=== PATIENT | female | born 1955 | race Caucasian/White ===

== ENCOUNTER 2022-07-27 11:16 | Outpatient (CLI) | payer MEDICARE, SELFPAY ==
[2022-07-27 21:56] LABS: Albumin* 5.2 g/dL (3.3-5.0)
[2022-07-27 21:58] LABS: Aspartate Amino Transferase* 50 U/L (12-35); Bilirubin Direct* 0.2 mg/dL (0.0-0.5); Bilirubin Total* 0.8 mg/dL (0.1-1.5); Total Protein* 8.3 g/dL (6.0-8.3)
[2022-07-27 21:59] LABS: Alanine Aminotransferase* 63 U/L (4-35); Alkaline Phosphatase* 176 U/L (40-150)
== END 2022-07-27 11:17 | disposition home or self-care (01) ==
LOC: LKVREF 11:16
PROVIDERS: PCP Family Medicine; Visit Provider Family Medicine
DX: R79.89 Other specified abnormal findings of blood chemistry (principal)
CPT/HCPCS: 80076

== ENCOUNTER 2022-09-13 11:02 | Outpatient (CLI) | payer MEDICARE, SELFPAY ==
[2022-09-13 22:15] LABS: Chloride* 105 mmol/L (96-114)
[2022-09-13 22:16] LABS: Potassium* 4.4 mmol/L (3.6-5.1); Sodium* 142 mmol/L (135-149)
[2022-09-13 22:18] LABS: Carbon Dioxide* 27 mmol/L (20-32); Creatinine* 0.8 mg/dL (0.5-1.5); Estimated Glomerular Filt Rate 80 ml/min
[2022-09-13 22:19] LABS: Blood Urea Nitrogen* 15 mg/dL (7-30); Calcium* 9.7 mg/dL (8.4-10.6); Glucose* 102 mg/dL (60-115)
== END 2022-09-13 11:03 | disposition home or self-care (01) ==
LOC: LKVREF 11:03
PROVIDERS: PCP Family Medicine; Visit Provider Family Medicine
DX: M54.9 Dorsalgia, unspecified (principal)
CPT/HCPCS: 80048; 87086

== ENCOUNTER 2023-04-12 10:29 | Outpatient (CLI) | payer MEDICARE, SELFPAY | END 2023-04-12 10:30 | disposition home or self-care (01) | PROVIDERS: PCP Family Medicine; Referring Provider Family Medicine; Visit Provider Family Medicine | DX: I10 Essential (primary) hypertension (principal); E78.5 Hyperlipidemia, unspecified; R79.89 Other specified abnormal findings of blood chemistry | CPT/HCPCS: 80048; 80061; 80076 ==